=== PATIENT | female | born 1940 | race Caucasian/White ===

== ENCOUNTER 2016-05-17 10:33 | Day surgery (SDC) | payer MEDICARE ==
[~2016-05-17] VITALS: Ht 154.9 cm; Wt 97.1 kg
[~2016-05-17 10:33] MED LIST: ACET-2605 PO; FERR325T6 PO; FUR20 PO; IBUP200C PO; Sodium Chloride LOK Flush 10 mL Syringe IV PRN; [UNRECOGNIZED DRUG - CODE] PO; fentaNYL-PF 50 mCg/mL 2 mL Inj IVPUSH PRN
[2016-05-17] MEDS ORDERED: ASPI-973 PO (10:52)
[2016-05-17] MEDS ORDERED: OXYC5TAB72 PO (10:52)
[2016-05-17] MEDS ORDERED: CHOL200047 PO (10:52)
[2016-05-17 11:01] VITALS: BP 149/83; PULSE 79; RESP 16; O2SAT 92
[2016-05-17] MEDS: 0.9% Sodium Chloride 1,000 ML IV SCH ×3 (11:05→12:03)
[2016-05-17 12:18] VITALS: BP 147/72; PULSE 75; RESP 17; O2SAT 93
--- NOTE | 2016-05-17 12:18 | PCM.ENDCOL ---
Colonoscopy Physician Aamir Holguin MD Pre Procedure Diagnosis: History of polyps Post Procedure Dx & Findings: Patchy irritation and hemorrhoids Procedure Colonoscopy PROCEDURE IN DETAIL: Prep adequate Withdrawal time 15 minutes After unremarkable rectal examination the Olympus video colonoscope was inserted patient's anal canal and was advanced to cecum. Landmarks were identified including the ileocecal valve and appendiceal orifice. Scope further advanced into terminal ileum. We advanced about normal villous structure noted without any ulcer or mass erosion. Scope was withdrawn systematically. Visualized colonic mucosa showed healthy shiny mucosa with normal healthy-appearing vasculature. 35 cm from the anal verge, there was a 8 mm patch of redness. This was biopsies. In the rectum retroflexion was done which showed hemorrhoids. Anal canal was inspected carefully on the way out and hemorrhoids noted. Impression 8 Millimeters patchy inflammation in the left colon. Hemorrhoids Recommendation Repeat colonoscopy in 5 years Presedation Assessment Risks and Benefits Informed consent was obtained from the patient after all risks and benefits including but not limited to drug reaction, infection, pain, bleeding, perforation, as well as alternatives were discussed. Patient monitoring Continuous pulse oximetry, cardiac monitoring, blood pressure monitoring, IV access, and oxygen at 2L per nasal cannula. Periprocedural Fentanyl: Fentanyl 75mcg Incrementally Midazolam: Midazolam 3mg Incrementally Complications There were no periprocedural complications identified. Post Procedure Plan Post Procedure Recommendations 1. Restrict activities today. 2. Resume normal activities in the morning. 3. Resume medications. 4. Patient informed of normal post procedure side effects as bloating, drowsiness, blood streaking in the stool. 5. average risk CRCS. If colon polyps come back as: -Hyperplastic- can repeat colonoscopy in 10 years -Tubular adenoma- repeat colonoscopy in 5 years -Tubulovillous/villous adenoma- repeat colonoscopy in 3 years -If any dysplasia- return to clinic as soon as possible 6. Please don't hesitate to call me with any questions. Aamir Holguin MD May 17, 2016 12:18
[2016-05-17 12:28] VITALS: BP 139/64; PULSE 76; RESP 15; O2SAT 92
[2016-05-17 12:40] VITALS: BP 157/79; PULSE 74; RESP 17; O2SAT 92
--- NOTE | 2016-05-19 08:51 | PATH ---
SURGICAL PATHOLOGY Attending Physician:Aamir Holguin M.D. CASE STATUS: Signed Out PATIENT NAME: BECKY TREJO PID: [id number] : 1940 DATE COLLECTED:05/17/2016 20:19 SPECIMEN: Colon, Biopsy CLINICAL HISTORY: 1). BIOPSY AT 35CM FINAL DIAGNOSIS: Colon Biopsy at 35 cm: Mild active colitis without distortion of the glandular architecture please see comment. Negative for granulomas, malignancy and dysplasia. ICD10 K52.9 NOTE: The etiology of the inflammation is unclear. The findings are not suggestive of inflammatory bowel disease or ischemic colitis. Possible etiologies include chemicals (NSAIDs) and diverticular disease. GROSS DESCRIPTION: The specimen is received in one formalin filled container labeled with the patient's name, sublabeled "35 CM" and consists of a 0.2 x 0.2 x 0.2 CM portion of tissue which is entirely submitted in one cassette. 05/17/2016 [facility], [place] ICD-9 CODES: CPT CODES: 1: 15420 Electronically Signed Out Elias Reeder MD [facility] Pathology [facility] [address], [place] [address] Technical component performed at [facility], [facility] [address], [place], [address]
== END 2016-05-17 23:59 | disposition home or self-care (01) ==
LOC: END 10:33
PROVIDERS: ATTEND Internal Medicine
DX: Z12.11 Encounter for screening for malignant neoplasm of colon (principal); Z85.038 Personal history of other malignant neoplasm of large intestine; K52.9 Noninfective gastroenteritis and colitis, unspecified; K64.9 Unspecified hemorrhoids; M47.896 Other spondylosis, lumbar region; M54.16 Radiculopathy, lumbar region; Z96.643 Presence of artificial hip joint, bilateral; Z92.3 Personal history of irradiation; Z92.21 Personal history of antineoplastic chemotherapy; Z85.42 Personal history of malignant neoplasm of other parts of uterus; Z80.0 Family history of malignant neoplasm of digestive organs
CPT/HCPCS: 45380; 88305; 99153; G0500; J7030